=== PATIENT | female | born 1940 | race Caucasian/White ===

== ENCOUNTER 2022-05-28 03:21 | Emergency (ER) | payer MEDICARE ==
[2022-05-28 04:15] LABS: HEMOGLOBIN 12.7 gm/dl (12.3-15.3); RED BLOOD COUNT 4.24 M/UL (4.00-5.10); WHITE BLOOD COUNT 7.2 K/UL (4.5-11.0)
[2022-05-28 04:51] LABS: BUN/CREATININE RATIO 26 (0-10)
== END 2022-05-28 08:07 | disposition home or self-care (01) ==
LOC: ER1 03:21
PROVIDERS: Student in an Organized Health Care Education/Training Program
DX: R07.89 Other chest pain (principal); R03.0 Elevated blood-pressure reading, without diagnosis of hypertension; E78.5 Hyperlipidemia, unspecified; E07.9 Disorder of thyroid, unspecified
CPT/HCPCS: 71045; 80053; 82550; 82553; 84484; 85025; 93005; 99285